=== PATIENT | female | born 2000 | race African-American/Black ===

== ENCOUNTER 2024-01-25 13:51 | Inpatient (IN) ==
[2024-01-25 15:47] LABS: ABS Eosinophils 0.1 10^3/uL (0.0-0.5); ABS Lymphocytes 1.1 10^3/uL (1.0-4.8); ABS Monocytes 0.2 10^3/uL (0.0-0.9); ABS Neutrophils 3.7 10^3/uL (1.5-7.6); ABS Nucleated RBC 0.01 10^3/ul; Eosinophil % 2.4 %; Hematocrit 41.7 % (35-45); Lymphocyte % 21.8 %; Mean Corpuscular Hgb Conc 33.5 g/dL (31-36); Mean Corpuscular Volume 83.6 fL (80-97); Mean Platelet Volume 8.1 fL (7.5-11.2); Nucleated Red Blood Cells % 0.1 %/100WBC (0.0-0.8); Platelet Count 282 10^3/uL (150-450); Red Blood Count 4.99 10^6/uL (3.63-4.92); Red Cell Distribution Width 15.6 % (12-17); White Blood Count 5.1 10^3/uL (3.8-11.8)
[2024-01-25 15:54] LABS: Urine Appearance Turbid; Urine Bilirubin Negative (Negative); Urine Blood 2+ (Negative); Urine Color Light-Yellow; Urine Glucose Negative (Negative); Urine Ketones Trace (Negative); Urine Nitrite Negative (Negative); Urine Protein Trace (Negative); Urine Specific Gravity 1.014 (1.002-1.030); Urine Urobilinogen Negative (Negative)
[2024-01-25 16:00] LABS: Urine Bacteria Absent /HPF (Absent); Urine Red Blood Cell 1+(3-5/hpf) /HPF (0-Trace); Urine Squamous Epithelial Cell Present /HPF (Absent); Urine White Blood Cell Trace(0-5/hpf) /HPF (0-Trace)
[2024-01-25 16:07] LABS: Urine Benzodiazepine Screen None Detected (None Detect); Urine Cannabinoids Screen Presumptive Positive (None Detect); Urine Opiates Screen None Detected (None Detect)
[2024-01-25 16:23] LABS: ALT 13 U/L (7-52); AST 16 U/L (13-39); Acetaminophen < 15 mcg/mL; Albumin 4.6 g/dL (3.2-5.2); Albumin/Globulin Ratio 1.8 (1-3); Alcohol, S 64 mg/dL (<13); Alkaline Phosphatase 95 U/L (35-149); Anion Gap 9 mmol/L (2-16); Blood Urea Nitrogen 10 mg/dL (6-24); CO2 Carbon Dioxide 28 mmol/L (22-32); Calcium 9.8 mg/dL (8.6-10.3); Chloride 101 mmol/L (101-111); Creatinine, Serum 0.73 mg/dL (0.51-0.95); Globulin 2.5 g/dL (2-4); Glucose 143 mg/dL (70-100); Potassium 3.7 mmol/L (3.5-5.0); Salicylate < 2.50 mg/dL (<30); Sodium 138 mmol/L (135-145); Total Bilirubin 0.4 mg/dL (0.2-1.0); Total Protein 7.1 g/dL (6.4-8.9); eGFR CKD-EPI 119.2 (>60)
[2024-01-25 16:28] LABS: HCG Pregnancy < 0.60 mIU/mL
[2024-01-25 16:37] LABS: TSH Ultra Thyroid Stim Horm 0.82 mcIU/mL (0.34-5.60)
[2024-01-25] MEDS ORDERED: Al Hydrox/Mg Hydrox/Simet LIQ 30 ML UDC PO PRN (19:59)
[2024-01-25] MEDS: Nicotine GUM 4MG FRUIT FLAVOR PO PRN (21:05)
[2024-01-25] MEDS: Nicotine GUM 4MG FRUIT FLAVOR PO ONE (21:31)
[2024-01-26 08:47] LABS: HDL Cholesterol 70.7 mg/dL
[2024-01-26] MEDS: Nicotine PATCH 21 MG/24 HR PATCH TRANSDERM SCH (09:44)
[2024-01-26] MEDS: Vitamin THERAPEUTIC TAB PO SCH (09:44)
[2024-01-28 09:17] VITALS: BP 93/71
== END 2024-01-28 15:30 | disposition home or self-care (01) | DRG 774 ==
LOC: ED 13:51 → EDHOLD 18:11 → BSU 18:16
PROVIDERS: ADMIT Psychiatry & Neurology Psychiatry; ATTEND Psychiatry & Neurology Psychiatry

== ENCOUNTER 2024-08-24 05:35 | Inpatient (IN) ==
[2024-08-24 06:40] LABS: ABS Eosinophils 0.4 10^3/uL (0.0-0.5); ABS Lymphocytes 2.9 10^3/uL (1.0-4.8); ABS Monocytes 0.3 10^3/uL (0.0-0.9); ABS Neutrophils 3.4 10^3/uL (1.5-7.6); ABS Nucleated RBC 0.01 10^3/ul; Eosinophil % 5.9 %; Hematocrit 40.1 % (35-45); Hemoglobin 13.8 g/dL (11.5-14.3); Lymphocyte % 41.4 %; Mean Corpuscular Hemoglobin 27.8 pg (27-33); Mean Corpuscular Hgb Conc 34.4 g/dL (31-36); Mean Corpuscular Volume 80.8 fL (80-97); Mean Platelet Volume 8.2 fL (7.5-11.2); Nucleated Red Blood Cells % 0.1 %/100WBC (0.0-0.8); Platelet Count 315 10^3/uL (150-450); Red Blood Count 4.97 10^6/uL (3.63-4.92); Red Cell Distribution Width 17.2 % (12-17); White Blood Count 6.9 10^3/uL (3.8-11.8)
[2024-08-24 07:16] LABS: ALT 13 U/L (7-52); AST 17 U/L (13-39); Acetaminophen < 15 mcg/mL; Albumin 4.8 g/dL (3.2-5.2); Albumin/Globulin Ratio 1.8 (1-3); Alcohol, S 196 mg/dL (<13); Alkaline Phosphatase 86 U/L (35-149); Anion Gap 7 mmol/L (2-16); Blood Urea Nitrogen 6 mg/dL (6-24); CO2 Carbon Dioxide 29 mmol/L (22-32); Calcium 10.1 mg/dL (8.6-10.3); Chloride 105 mmol/L (101-111); Creatine Kinase 298 U/L (10-223); Creatinine, Serum 0.65 mg/dL (0.51-0.95); Globulin 2.6 g/dL (2-4); Glucose 63 mg/dL (70-100); Potassium 3.4 mmol/L (3.5-5.0); Salicylate < 2.50 mg/dL (<30); Sodium 141 mmol/L (135-145); Total Bilirubin 0.2 mg/dL (0.2-1.0); Total Protein 7.4 g/dL (6.4-8.9); eGFR CKD-EPI 127.6 (>60)
[2024-08-24 07:21] LABS: HCG Pregnancy < 0.60 mIU/mL
[2024-08-24 07:29] LABS: TSH Ultra Thyroid Stim Horm 12.23 mcIU/mL (0.34-5.60)
[2024-08-24] MEDS: Magnesium Sulfate 2 gm BAG 2 GM/50 ML BAG IVPB ONE (07:33)
[2024-08-24] MEDS: Lactated Ringers 1000 ml BAG 1,000 ML IV ONE ×2 (07:33→13:10)
[2024-08-24 08:56] LABS: Free T3 3.96 pg/mL (2.5-3.9)
[2024-08-24 08:58] LABS: Free T4 1.01 ng/dL (0.61-1.12)
[2024-08-24] MEDS: Dextrose 50% Syringe 50 ml 25 GM/50 ML SYRINGE IV PUSH PRN (10:21)
[2024-08-24] MEDS ORDERED: Lorazepam PYXIS KEY PRN (11:27)
[2024-08-24] MEDS: LORazepam 2 mg VIAL 1 ml IM ONE (11:38)
[2024-08-24] MEDS ORDERED: LORazepam 2 MG/ML 1 mL Syringe IV ONE (12:34)
[2024-08-24] MEDS: LORazepam 2 mg VIAL 1 ml IV PUSH ONE (12:55)
[2024-08-24 14:21] LABS: Urine Appearance Turbid; Urine Bilirubin Negative (Negative); Urine Blood Negative (Negative); Urine Color Colorless; Urine Glucose 1+ (>=70 mg/dL) (Negative); Urine Ketones Negative (Negative); Urine Nitrite Negative (Negative); Urine Protein Negative (Negative); Urine Urobilinogen Negative (Negative); Urine pH 7.5 (5.0-8.0)
[2024-08-24] MEDS: Thiamine 100 MG/ML 2 ml VIAL 100 MG, Folic Acid IV 1 MG, Multiple Vitamin IV ADULT 10 M... IV ONE (14:34)
[2024-08-24 14:52] LABS: Urine Benzodiazepine Screen None Detected (None Detect); Urine Cannabinoids Screen None Detected (None Detect); Urine Opiates Screen None Detected (None Detect)
[2024-08-24] MEDS: KCL 10 MEQ/50 ML IVPREMIX 10 MEQ/50 ML BAG IV SCH (17:45)
[2024-08-24] MEDS: Thiamine 100 MG/ML 2 ml VIAL (200 mg) IM ONE (19:41)
[2024-08-24] MEDS: LORazepam 2 mg VIAL 1 ml IV PUSH SCH (19:43)
[2024-08-24] MEDS: Lactated Ringers 1000 ml BAG 1,000 ML IV SCH (19:43)
[2024-08-25 04:46] LABS: ABS Eosinophils 0.2 10^3/uL (0.0-0.5); ABS Lymphocytes 1.2 10^3/uL (1.0-4.8); ABS Monocytes 0.3 10^3/uL (0.0-0.9); ABS Neutrophils 3.9 10^3/uL (1.5-7.6); Eosinophil % 2.8 %; Hematocrit 25.4 % (35-45); Hemoglobin 8.4 g/dL (11.5-14.3); Lymphocyte % 21.9 %; Mean Corpuscular Hemoglobin 27.6 pg (27-33); Mean Corpuscular Hgb Conc 33.2 g/dL (31-36); Mean Corpuscular Volume 83.3 fL (80-97); Mean Platelet Volume 8.1 fL (7.5-11.2); Platelet Count 172 10^3/uL (150-450); Red Blood Count 3.05 10^6/uL (3.63-4.92); Red Cell Distribution Width 17.3 % (12-17); White Blood Count 5.6 10^3/uL (3.8-11.8)
[2024-08-25 05:35] LABS: Albumin/Globulin Ratio 1.9 (1-3); Calcium 8.4 mg/dL (8.6-10.3); Creatinine, Serum 0.44 mg/dL (0.51-0.95); Globulin 1.6 g/dL (2-4); Magnesium 1.2 mg/dL (1.9-2.7); Potassium 3.7 mmol/L (3.5-5.0); Total Bilirubin 0.7 mg/dL (0.2-1.0); Total Protein 4.6 g/dL (6.4-8.9); eGFR CKD-EPI 140.2 (>60)
[2024-08-25] MEDS: Magnesium Sulf 4 GM/100 ML IV 4,000 MG/100 ML BAG IVPB ONE (08:11)
[2024-08-25] MEDS: Multivitamins/Minerals TAB PO SCH (08:11)
[2024-08-25 13:49] LABS: Hematocrit 36.5 % (35-45); Hemoglobin 12.3 g/dL (11.5-14.3)
[2024-08-25] MEDS: Nicotine PATCH 7 MG/24 HR PATCH TRANSDERM SCH (19:42)
[2024-08-25] MEDS: Nicotine GUM 2MG FRUIT FLAVOR PO PRN (19:42)
[2024-08-26] MEDS ORDERED: Lorazepam PYXIS KEY PRN (00:27)
[2024-08-26] MEDS: LORazepam 2 mg VIAL 1 ml IV PUSH PRN (01:00)
[2024-08-27] MEDS: Nicotine PATCH 7 MG/24 HR PATCH TRANSDERM SCH (08:16)
[2024-08-29 08:16] VITALS: BP 123/79
== END 2024-09-03 10:10 | disposition home or self-care (01) | DRG 775 ==
LOC: EDHOLD 05:35 → ED 05:35 → MEDTELE 08-25 17:44
PROVIDERS: ADMIT Hospitalist; ATTEND Psychiatry & Neurology Psychiatry